=== PATIENT | male | born 1985 | race African-American/Black ===

== ENCOUNTER 2018-10-12 23:40 | Emergency (ER) | payer SELFPAY ==
--- NOTE | 2018-10-12 23:58 | EDM.PDOC ---
ED HPI GENERAL MEDICAL PROBLEM - General Chief Complaint: Asthma Stated Complaint: SOB/ASTHMA Time Seen by Provider: 10/12/18 23:58 - History of Present Illness INITIAL COMMENTS - FREE TEXT/NARRATIVE: 33-year-old male presents emergency room with worsening asthma. Patient uses his albuterol on an as-needed basis he can go months without needing it however he left it back home in [place] any needs it. He's tried to tough it out the last few days but his breathing is just getting worse. 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 He denies any other significant medical problems and for the most part enjoys pretty good health. Unfortunately the patient is a smoker however he's been counseled on the importance of quitting smoking especially with underlying lung disease. - Related Data Allergies Allergy/AdvReac Type Severity Reaction Status Date / Time No Known Allergies Allergy Verified 10/12/18 23:50 Home Meds: Home Meds Albuterol Sulfate [Albuterol Sulfate Hfa] 1 puff INH ASDIRECTED PRN 10/12/18 [ History] Albuterol Sulfate [Albuterol Sulfate Hfa] 8.5 gm IH Q4H #1 hfa.aer.ad 10/13/18 [ Rx] predniSONE [Prednisone] 40 mg PO Q24H #10 tablet 10/13/18 [Rx] Past Medical History Respiratory History: Reports: Asthma Social & Family History - Tobacco Use Smoking Status *Q: Current Every Day Smoker Years of Tobacco use: 15 Packs/Tins Daily: 0.2 - Alcohol Use Days Per Week of Alcohol Use: 5 Number of Drinks Per Day: 2 Total Drinks Per Week: 10 - Recreational Drug Use Recreational Drug Use: No ED ROS GENERAL - Review of Systems Review Of Systems: See Below Constitutional: Reports: No Symptoms HEENT: Reports: No Symptoms Respiratory: Reports: Wheezing, Cough. Denies: Sputum Cardiovascular: Reports: No Symptoms Endocrine: Reports: No Symptoms GI/Abdominal: Reports: No Symptoms ED EXAM, GENERAL - Physical Exam Exam: See Below Exam Limited By: No Limitations General Appearance: Alert, No Apparent Distress Eye Exam: Bilateral Eye: Normal Inspection Ears: Normal External Exam, Normal Canal, Hearing Grossly Normal, Normal TMs Nose: Normal Inspection, Normal Mucosa Throat/Mouth: Normal Inspection, Normal Lips, Normal Teeth, Normal Gums, Normal Oropharynx, Normal Voice, No Airway Compromise Head: Atraumatic, Normocephalic Neck: Normal Inspection, Supple, Non-Tender, Full Range of Motion. No: Lymphadenopathy (L), Lymphadenopathy (R) Respiratory/Chest: No Respiratory Distress, Lungs Clear, Decreased Breath Sounds , Wheezing, Other (Shaley the patient had decreased breath sounds and a few expiratory wheezes. He was given a breathing treatment and breath sounds normalized he was observed for some time it is breath sounds continued to be fairly normal) Cardiovascular: Regular Rate, Rhythm, No Edema, No Murmur GI/Abdominal: Normal Bowel Sounds, Soft, Non-Tender Course - Vital Signs Last Recorded V/S: Last Vital Signs Temp 36.4 C 10/12/18 23:50 Pulse 80 10/12/18 23:50 Resp 20 10/12/18 23:50 BP 115/87 10/12/18 23:50 Pulse Ox 92 L 10/13/18 01:54 - Orders/Labs/Meds Orders: Active Orders 24 hr Category Date Time Status RT Aerosol Therapy [RC] ASDIRECTED Care 10/13/18 00:05 Active RT Post Treatment Assessment [RC] Click to Edit Care 10/13/18 01:43 Active RT Pre-Treatment Assessment [RC] Click to Edit Care 10/13/18 01:43 Active Chest 2V [CR] Stat Exams 10/13/18 00:05 Taken Meds: Medications Discontinued Medications Generic Name Dose Route Start Last Admin Trade Name Romero PRN Reason Stop Dose Admin Albuterol 8 gm 10/13/18 01:42 Proventil Hfa INH 10/13/18 01:43 ONETIME ONE Albuterol 6.7 gm 10/13/18 01:47 10/13/18 01:58 Proventil Hfa INH 10/13/18 01:48 2 puff ONETIME ONE Administration Albuterol/Ipratropium 3 ml 10/13/18 00:02 10/13/18 00:21 Duoneb 3.0-0.5 Mg/3 Ml NEB 10/13/18 00:03 3 ml ONETIME ONE Administration Prednisone 60 mg 10/13/18 00:02 10/13/18 00:36 Prednisone PO 10/13/18 00:03 60 mg ONETIME ONE Administration - Re-Assessments/Exams Free Text/Narrative Re-Assessment/Exam: 10/13/18 02:43 Patient was treated with 60 mg by mouth prednisone and a single DuoNeb treatment with significant improvement he was watched for some time and he did okay initially his O2 saturation was 91% which is a little peculiar. Ultimately we change the pulse oximetry probe and is perhaps a little better. Usually patients in the low 90s when he sleeps and in the mid 90s when he is awake and talking. Patient is given a albuterol inhaler he's caution and encouraged to quit smoking he agrees to follow-up in the clinic. Departure - Departure Time of Disposition: 02:44 Disposition: Home, Self-Care 01 Clinical Impression: Asthma exacerbation - Discharge Information Prescriptions: Albuterol Sulfate [Albuterol Sulfate Hfa] 8.5 gm IH Q4H #1 hfa.aer.ad predniSONE [Prednisone] 40 mg PO Q24H #10 tablet Referrals: PCP,Not In Area [Primary Care Provider] - Forms: ED Department Discharge Additional Instructions: Return to the emergency room with any questions problems worsening symptoms. Use your inhaler as directed. Take the prednisone as directed Follow-up in the Hospital clinic early part of this next week [id number]. - My Orders Last 24 Hours: My Active Orders 10/13/18 00:05 RT Aerosol Therapy [RC] ASDIRECTED Chest 2V [CR] Stat 10/13/18 01:43 RT Post Treatment Assessment [RC] Click to Edit RT Pre-Treatment Assessment [RC] Click to Edit - Assessment/Plan Last 24 Hours: My Active Orders 10/13/18 00:05 RT Aerosol Therapy [RC] ASDIRECTED Chest 2V [CR] Stat 10/13/18 01:43 RT Post Treatment Assessment [RC] Click to Edit RT Pre-Treatment Assessment [RC] Click to Edit
[2018-10-13] MEDS ORDERED: Albuterol/Ipratropium 3.0-0.5 MG/3 ML Neb Soln NEB ONE (00:02)
[2018-10-13] MEDS ORDERED: predniSONE 20 MG Tab PO ONE (00:02)
[2018-10-13] MEDS ORDERED: Albuterol 6.7 GM Inhaler INH ONE ×2 (01:42→01:47)
--- NOTE | 2018-10-13 09:00 | CR ---
Chest: Two views of the chest were obtained. Comparison: No previous chest x-ray. Heart size and mediastinum are normal. Lungs are clear. Bony structures appear within normal limits. Impression: 1. Nothing acute is appreciated on two-view chest x-ray. Diagnostic code #1
== END 2018-10-13 03:05 | disposition home or self-care (01) ==
LOC: JD.ED 23:40
DX: J45.901 Unspecified asthma with (acute) exacerbation (principal); F17.210 Nicotine dependence, cigarettes, uncomplicated
CPT/HCPCS: 71046; 94640; 99285; A9270; 99283; J7620-GY